=== PATIENT | female | born 1990 | race Caucasian/White ===

== ENCOUNTER 2023-07-08 11:41 | Outpatient (CLI) | payer OTHER | END 2023-07-08 11:42 | disposition home or self-care (01) | LOC: LAB 11:41 | PROVIDERS: ATTEND Nurse Practitioner Obstetrics & Gynecology | DX: Z13.79 Encounter for other screening for genetic and chromosomal anomalies (principal) | CPT/HCPCS: 36415 ==

== ENCOUNTER 2023-09-10 13:30 | Outpatient (CLI) | payer OTHER, MEDICAID ==
--- NOTE | 2023-09-10 20:27 | Ultrasound Report ---
PROCEDURE: OB 14+ Weeks INDICATIONS: SUPERVISION OF OUTSIDE/PRIOR DATING DATA: Last menstrual period (LMP): 04/09/2023. LMP-based estimated date of delivery (LUIS ANGEL): 01/14/2024. First dating scan (date and location): 06/08/2023j; referring physician. Estimated date of delivery (LUIS ANGEL) from first dating scan: 01/21/2024. The below data below was generated using the working LUIS ANGEL of 01/21/2024 TECHNIQUE: Real-time scanning was performed of the fetus, with image documentation and biometric measurements. Endovaginal scanning: Not performed. COMPARISON: None. FINDINGS: General: A single living intrauterine gestation is present. Presentation: Breech Placenta: Placental position is anterior, without previa. Amniotic fluid index: 15.8 cm, with largest pocket measuring 5.1 cm. heart rate: 152 beats per minute. Maternal cervical canal: Closed measuring 3.4 cm long; normal length is 2.5 cm or more. biometrics: Biparietal diameter: 5.09 cm; 21 weeks 3 days; 63.3% Head circumference: 19.02 cm; 21 weeks 2 days; 54.0% Abdominal circumference: 16.95 cm; 22 weeks 0 day; 75.5% Femur length: 3.74 cm; 21 weeks 6 days; 73.0% Estimated gestational age from initial scan: 21 weeks 0 day. Composite gestational age from present scan: 21 weeks 2 days Estimated weight and percentile: 455.7 g; 86.9% Measurement variability for biometric dating: +/- 10 days from 12-20 weeks gestation, +/- 2 weeks fro m 20-30 weeks gestation, +/- 3 weeks for 30 weeks gestation or later. Anatomic survey: Neuro: Ventricles are non-dilated at less than 10 mm. Cisterna magna is normal at 3-11 mm. Cerebel lum is normal in size and morphology. Nuchal skin fold: Normal at less than 6 mm between 14-20 weeks gestational age. Face: Nose and lips, facial profile are normal. Spine: No evidence for spina bifida. Heart: 4-chambered heart is present. The ventricular outflow tracts are not visualized. Diaphragm: Diaphragm is intact. Stomach: Left-sided stomach is present. Kidneys: No hydronephrosis. Normal is less than 5 mm in 2nd trimester, less than 7 mm in 3rd trimester. Cord: 3-vessel cord has orthotopic insertion. Bladder: Normal in size. Extremities: All 4 extremities identified. IMPRESSION: 1. A single living IUP with appropriate interval growth. 2. weight is estimated at 86.9% for gestational age. 3. DONALDO 15.8 cm. 4. cardiac outflow tracts are not visualized. Consider follow-up imaging. Reviewed by: Dalia Goff MD on 09/10/2023 8:26 PM PST Approved by: Dalia Goff MD on 09/10/2023 8:26 PM PST Station ID: [id number]
== END 2023-09-10 13:31 | disposition home or self-care (01) ==
LOC: DI 13:30
PROVIDERS: ATTEND Nurse Practitioner Obstetrics & Gynecology
DX: Z34.02 Encounter for supervision of normal first pregnancy, second trimester (principal); Z36.89 Encounter for other specified antenatal screening

== ENCOUNTER 2023-10-26 14:24 | Emergency (ER) | payer MEDICAID, OTHER ==
[2023-10-26 18:06] VITALS: BP 110/66; O2SAT 98
--- NOTE | 2023-10-26 19:03 | ED Physician Documentation ---
PD HPI ABD PAIN - Stated complaint Stated Complaint: RT SIDE PX - Chief complaint Chief Complaint: Trauma Abd - Additional information Additional information: 32-year-old female G1, P0 presents emergency department after falling down 3 stairs. She is 27 weeks . She says that she missed a step it was 3 short stairs going into her garage and fell onto her right side. She says she did not fall directly onto her stomach, But onto her right side. She said she has had no vaginal bleeding no abdominal cramping or discharge since the fall. She says she also feels safe at home no concerns of abuse she feels safe in her relationship. She is here alone. And was interviewed alone. She is no bruising to her body. She did not hit her head no loss of consciousness no blood thinners. PD PAST MEDICAL HISTORY - Past Medical History Past Medical History: Yes Cardiovascular: None Respiratory: None Neuro: None Endocrine/Autoimmune: None GI: None [employer] MANAGER: None : None HEENT: None Psych: None Musculoskeletal: None Derm: None - Past Surgical History Past Surgical History: No - Present Medications Home Medications: Ambulatory Orders Medication Instructions Recorded Confirmed Acetaminophen [Tylenol] 650 mg PO Q6H PRN 10/26/23 10/26/23 Pnv No.95/Ferrous Fum/Folic AC 1 each PO DAILY 10/26/23 10/26/23 [ Tablet] - Allergies Allergies/Adverse Reactions: Allergies Allergy/AdvReac Type Severity Reaction Status Date / Time No Known Drug Allergies Allergy Verified 10/26/23 14:45 - Social History Does the pt smoke?: No Smoking Status: Never smoker Does the pt drink ETOH?: No Does the pt have substance abuse?: No - Immunizations Immunizations are current?: Yes PD ED PE NORMAL - Vitals Vital signs reviewed: Yes - General General: Alert and oriented X 3, No acute distress, Well developed/nourished - HEENT HEENT: Atraumatic, PERRL - Cardiac Cardiac: RRR, No murmur, Strong equal pulses - Respiratory Respiratory: No respiratory distress, Clear bilaterally - Abdomen Abdomen: Soft, Non tender, Other (, no bruising, abrasions, or erythema to abdomen) - Back Back: No CVA TTP - Derm Derm: Normal color, Warm and dry, No rash - Extremities Extremities: No deformity, No edema Results - Vitals Vitals: Vital Signs - 24 hr 10/26/23 10/26/23 10/26/23 14:46 16:54 17:56 Temperature 36.9 C Heart Rate 70 76 82 Respiratory 18 22 20 Rate Blood Pressure 122/65 109/64 110/66 O2 Saturation 99 100 98 Oxygen O2 Source Room air - Rads (name of study) Limited OB ultrasound Relevant Findings:: Final report received, EMP independent interpretation of test, Other (No acute findings or abnormalities, single living IUP, no placental abruption or other abnormalities or acute findings.) PD Medical Decision Making - ED course ED course: 32-year-old female, 27 weeks presents emergency department after having a ground-level fall down 3 stairs onto her right side. 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 Ultrasound was complete there is no acute findings or abnormalities, heart rate 145 bpm, closed cervix, no placental abruption. Patient continues to deny any abdominal pain or cramping no vaginal bleeding or discharge. No other acute abnormalities or findings at this time symptoms have not changed since has been here she feels safe at home no concern for abuse at this time. Patient was given strict return precautions to the follow-up with [employer]. Departure - Departure Disposition: 01 Home, Self Care Clinical Impression: 27 weeks gestation of Fall down stairs Qualifiers: Encounter type: initial encounter Qualified Code(s): W10.8XXA - Fall (on) (from) other stairs and steps, initial encounter Instructions: ED Prevention Fall Comments: Thank you for trusting us with your care we have completed an ultrasound and you r placenta appears to be healthy and intact as well as your baby. Please follow-up with your [employer] to let her know about this fall please come back to the emergency department started noticed any vaginal bleeding, cramping, fevers chills, noticing that your baby is not moving around as much, or any other concerning symptoms. Forms: PCP List Discharge Date/Time: 10/26/23 19:14
--- NOTE | 2023-10-26 19:24 | Ultrasound Report ---
PROCEDURE: OB Limited INDICATIONS: fell down stairs OUTSIDE/PRIOR DATING DATA: Last menstrual period (LMP): 04/09/2023. LMP-based estimated date of delivery (LUIS ANGEL): 01/14/2024. First dating scan (date and location): 09/10/2023. Estimated date of delivery (LUIS ANGEL) from first dating scan: 01/21/2024. The below data below was generated using the working LUIS ANGEL of 01/21/2024 TECHNIQUE: Real-time scanning was performed of the fetus, with image documentation. COMPARISON: OB ultrasound, 09/10/2023. FINDINGS: A single living intrauterine gestation is present. Presentation: Vertex Placenta: Placental position is anterior, without previa. No findings to suggest placental abruption . Amniotic fluid index: 14.5 cm with the largest pocket 4.7 cm. heart rate: 145 beats per minutes. Maternal cervical canal: 3.8 cm long and closed; normal length is 2.5 cm or more. Estimated gestational age from initial scan: 27 weeks 4 days. IMPRESSION: 1. A single living IUP redemonstrated. 2. No findings to suggest placental abruption. 3. Cervix is closed measuring 3.8 cm long. Reviewed by: Dalia Goff MD on 10/26/2023 7:23 PM PST Approved by: Dalia Goff MD on 10/26/2023 7:23 PM PST Station ID: [id number]
== END 2023-10-26 19:14 | disposition home or self-care (01) ==
LOC: ED 14:24
DX: O9A.212 Injury, poisoning and certain other consequences of external causes complicating pregnancy, second trimester (principal); Z3A.27 27 weeks gestation of pregnancy; W10.9XXA Fall (on) (from) unspecified stairs and steps, initial encounter; Y92.008 Other place in unspecified non-institutional (private) residence as the place of occurrence of the external cause
CPT/HCPCS: 99283; 99284

== ENCOUNTER 2023-11-09 07:45 | Outpatient (CLI) | payer MEDICAID ==
[2023-11-09 12:16] LABS: HCT - HEMATOCRIT 33.6 % (37.0-47.0); MEAN CORPUSCULAR HEMOGLOBIN 31.7 pg (27.0-31.0); MEAN CORPUSCULAR HGB CONC 32.7 g/dL (32.0-36.0); MEAN CORPUSCULAR VOLUME 96.8 fL (81.0-99.0); MEAN PLATELET VOLUME 9.8 fL (7.9-10.8); RED BLOOD COUNT 3.47 10^6/uL (4.20-5.40); RED CELL DISTRIBUTION WIDTH 12.1 % (12.0-15.0); WHITE BLOOD COUNT 7.5 x10^3/uL (4.8-10.8)
== END 2023-11-09 07:46 | disposition home or self-care (01) ==
LOC: LAB.N 07:45
PROVIDERS: ATTEND Nurse Practitioner Obstetrics & Gynecology
DX: Z36.9 Encounter for antenatal screening, unspecified (principal)
CPT/HCPCS: 36415; 82950; 85027

== ENCOUNTER 2023-12-10 08:04 | Outpatient (CLI) | payer MEDICAID, OTHER ==
--- NOTE | 2023-12-10 08:52 | Ultrasound Report ---
PROCEDURE: OB Follow up INDICATIONS: UTERINE SIZE DATE DISCREPENCY OUTSIDE/PRIOR DATING DATA: Last menstrual period (LMP): 04/09/2023. LMP-based estimated date of delivery (LUIS ANGEL): 01/14/2024. First dating scan (date and location): 09/10/2023. Estimated date of delivery (LUIS ANGEL) from first dating scan: 01/21/2024. The below data below was generated using the ultrasound LUIS ANGEL of 01/21/2024 TECHNIQUE: Real-time scanning was performed of the fetus, with image documentation and biometric measurements. Endovaginal scanning: Not performed. COMPARISON: 10/26/2023 FINDINGS: General: A single living intrauterine gestation is present. Presentation: Vertex Placenta: Placental position is anterior, without previa. Amniotic fluid index: 15.5 cm, within normal limits for gestational age. heart rate: 136 beats per minute. Maternal cervical canal: 3.7 cm long; normal length is 2.5 cm or more. biometrics: Biparietal diameter: 8.81 cm, 35 weeks 4 days, 87.8 percentile Head circumference: 31.3 cm, 35 weeks 1 day, 40.7 percentile Abdominal circumference: 30.5 cm, 34 weeks 3 days, 67.8 percentile Femur length: 6.75 cm, 34 weeks 5 days, 59.6 percentile Estimated gestational age from initial scan: 34 weeks 0 days Composite gestational age from present scan: 35 weeks 0 days Estimated weight and percentile: 2496 g, 65.3 percentile Measurement variability in biometric dating: +/- 10 days from 12-20 weeks gestation, +/- 2 weeks from 20-30 weeks gestation, +/- 3 weeks at 30 weeks gestation or more. Other: Not applicable. IMPRESSION: Living third trimester intrauterine with no sonographic evidence of complicati ons. Current ultrasound age is 7 days greater than clinical age. Reviewed by: Raphael Pedro MD on 12/10/2023 8:51 AM PDT Approved by: Raphael Pedro MD on 12/10/2023 8:51 AM PDT Station ID: [id number]
== END 2023-12-10 08:05 | disposition home or self-care (01) ==
LOC: DI 08:04
PROVIDERS: ATTEND Nurse Practitioner Obstetrics & Gynecology
DX: O26.843 Uterine size-date discrepancy, third trimester (principal); Z36.89 Encounter for other specified antenatal screening; Z3A.35 35 weeks gestation of pregnancy

== ENCOUNTER 2024-01-15 06:55 | Inpatient (IN) | payer OTHER, MEDICAID ==
[2024-01-15] MEDS ORDERED: TERBUTALINE 1 MG/ML VIAL SUBQ PRN (07:55)
[2024-01-15] MEDS ORDERED: OXYTOCIN/SODIUM CHLORIDE 500 ML IV PRN (07:55)
[2024-01-15] MEDS ORDERED: SODIUM CHLORIDE FLUSH 0.9% 10 ML SYRINGE IVP PRN (07:55)
[2024-01-15] MEDS ORDERED: LACTATED RINGERS 1,000 ML IV PRN (07:55)
[2024-01-15] MEDS ORDERED: hydrALAZINE INJ 20 MG/ML VIAL IVP PRN ×2 (07:55)
[2024-01-15] MEDS ORDERED: miSOPROStoL 200 MCG TABLET PR PRN (07:55)
[2024-01-15] MEDS ORDERED: METHYLERGONOVINE 0.2 MG/ML VIAL IM PRN (07:55)
[2024-01-15] MEDS ORDERED: CARBOPROST TROMETHAMINE 250 MCG/ML VIAL IM PRN (07:55)
[2024-01-15] MEDS ORDERED: TRANEXAMIC ACID IN NACL 1,000 MG/100 ML BAG IV PRN (07:55)
[2024-01-15] MEDS ORDERED: LABETALOL 20 MG/4 ML SYRINGE IVP PRN ×3 (07:55)
[2024-01-15] MEDS ORDERED: NIFEdipine 10 MG CAPSULE PO PRN (07:55)
[2024-01-15] MEDS ORDERED: miSOPROStoL 200 MCG TABLET BC PRN (07:55)
--- NOTE | 2024-01-15 07:57 | HISTORY & PHYSICAL EXAMINATION ---
Admit History - Visit Reason Visit Reason: Contractions - : 1 Parity: 0 Premature: 0 Ectopic: 0 : 0 Care: positive: [facility] Risk/History: positive: None Complications This : positive: None Smoking Status: Never smoker - Mother's Labs Mother's Blood Type: positive: A Mother's RH: positive: Positive GBS: positive: Group B Step Negative Rubella Status: positive: Immune - NST Procedure NST reactive. FHR baseline 145, moderate variability, + accels, no decels Contractions palpate strong every 2-4 minutes with soft resting tone Meds/Allgy - Home Medications Home Medications: Ambulatory Orders Medication Instructions Recorded Confirmed Acetaminophen [Tylenol] 650 mg PO Q6H PRN 10/26/23 10/26/23 Pnv No.95/Ferrous Fum/Folic AC 1 each PO DAILY 10/26/23 10/26/23 [ Tablet] - Allergies Allergies/Adverse Reactions: Allergies Allergy/AdvReac Type Severity Reaction Status Date / Time No Known Drug Allergies Allergy Verified 10/26/23 14:45 Review of Systems - Constitutional Constitutional: denies: Fatigue, Fever, Chills, Malaise - Eyes Eyes: denies: Blurred vision, Spots in vision, Dipolpia - Cardiovascular Cariovascular: denies: Palpitations, Chest pain, Edema - Respiratory Respiratory: denies: Cough, Wheezing, SOB at rest - Gastrointestinal Gastrointestinal: denies: Constipation, Diarrhea, Nausea, Vomiting - Musculoskeletal Musculoskeletal: denies: Back pain - Integumentary Integumentary: denies: Rash, Pruritis - Neurological Neurological: denies: Headache - Psychiatric Psychiatric: denies: Depression, Anxiety - All Other Systems All Other Systems: reports: Reviewed and negative Physical - Abdominal Exam Contraction Frequency (min/apart): 2-4 Contraction Intensity: positive: Strong Uterine Resting Tone: positive: Soft - Monitoring Heart Rate Baseline: 140s Strip Review: positive: Category I - Presentation Presentation: positive: Vertex - Vaginal Exam Membranes: positive: Membranes intact Dilation (in cm): 6 Effacement (%): 75 Station: positive: -1 Cervical Position: positive: Anterior - Speculum Exam Speculum Exam Performed: positive: No Plan for Labor - Plan For Labor I expect patient to be DC'd or transferred within 96 hours.: Yes Plan for Labor: HPI: Sandy is a 33yo @ 39.1wks gestation by 7.5wk U/S who presents to [facility] in active labor. Upon arrival cervix is 6/100/-1 and vertex with intact membranes. She is found to contract every 2-4 minutes with soft resting tone. FHR baseline 140s, moderate variability, + accels, no decels. She reports she has been lindsey intermittently since yesterday and throughout the night they continued to get more intense and closer together. [facility] for the duration of her which has remained uncomplicated with the exception of testing positive for chlamydia in the first trimester. She and her partner were both treated appropriately and her test of cure was negative. She will be admitted to [facility] for expectant management. She is supported by her partner Alex. 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 Stopped drinking alcohol due to . Denies current use of tobacco, marijuana or other recreational drugs. Reports that she is safe in current relationship. Family Hx: Denies family history of congenital anomalies, Cystic Fibrosis or chromosomal abnormalities. Allergies: NKDA Medications: PNV course: Initial U/S @ 7.5wks dates (7 days different than LMP dating) A positive, antibody negative Rubella immune, varicella immune HIV nonreactive, RPR non-reactive Hep B neg, Hep C neg GC negative, Chlamydia POSITIVE Test of cure Chlamydia NEGATIVE Genetic screening - negative FAS WNL. Anterior placenta, no previa. Size c/w dating (EFW 86%tile). 3VC. Incomplete visualization of cardiac structures. (pt declines follow up). Glucola 113 Tdap - declined Covid - declined Influenza - declined 34 wk Growth ultrasound secondary to size<dates (EFW 65%tile) GBS negative Physical exam: Normocephalic, atraumatic Heart RRR w/o M/G/R Lungs CTAB Abdomen gravid, soft, nontender FHR baseline 140s, moderate variability, + accels, no decels Contractions palpate firm every 2-4 minutes with soft resting tone SVE 6/100/-1 and vertex. Intact membranes Bilateral LE's no edema Mood is good Assessment: 33yo @ 39.1wks gestation by 7.5wks U/S Active labor FHR Category I GBS negative Plan: Admit to [facility] for expectant management. Intermittent heart rate auscultating. Jacuzzi PRN. Nitrous oxide PRN. Epidural per maternal request. Anticipate .
[2024-01-15] MEDS ORDERED: SODIUM CHLORIDE FLUSH 0.9% 10 ML SYRINGE IVP SCH (08:00)
[2024-01-15] MEDS: lidocaine 1% 20 ML MDV ID PRN (12:30)
[2024-01-15] MEDS: OXYTOCIN 10 UNIT/ML VIAL IM PRN (12:50)
[2024-01-15] MEDS ORDERED: HYDROCORTISONE 1% CREAM 28 GM TUBE PR PRN (13:05)
--- NOTE | 2024-01-15 13:05 | DELIVERY NOTE ---
Delivery Note - Labor Labor: positive: Spontaneous - Delivery Method Delivery Method: positive: Spontaneous vaginal delivery - Presentation Presentation: positive: Vertex, ANA - left occiput anterior - Nuchal Cord Nuchal Cord: positive: None - Amniotic Fluid Description Amniotic Fluid Description: positive: Moderate meconium - Episiotomy Type Episiotomy Type: positive: None - Laceration Laceration: positive: 1st degree, Perineal - Suture Suture Type: positive: Vicryl Suture Size: positive: 3-0 - Delivery Outcome Delivery Outcome: positive: Livebirth - : positive: Placed in direct skin contact with mother, Suctioned, Bulb syringe, Stimulated, Warmed, [place] used, Warmer used sex: positive: Female - Cord Cord: positive: 3 vessels - Placenta Placenta: positive: Intact, Spontaneous - Estimated Blood Loss Estimated Blood Loss (in cc): 300 - Post Delivery Events Post Delivery Events: positive: No post delivery events - Delivery Comments (Free Text/Narrative) Delivery Comments (Free Text/Narrative): This 33yo @ 39.1wks gestation by 7.4wk U/S who presents to [facility] in active labor. Cervix was 6/75/-1 and vertex with intact membraens. FHR pattern demonstrated Category I pattern throughout labor. Normal labor course. SROM occurred at 1028 and was noted to be a moderate amount of moderate meconium stained amniotic fluid. She progressed to c/c with active pushing effort at 1125. : Normal SVB of a viable female infant on 01/15/2024 @ 1215. No nuchal cord. The was placed on maternal abdomen, stimulated, dried, and placed skin to skin. Apgars were 8/8 at 1 and 5 minutes respectively. Pt declined active management of the third stage. The umbilical cord was allowed to stop pulsating at which time it was doubly clamped and cut by CNM. 3VC. Cord blood was obtained. Fundal massage and gentle cord traction applied for active management of the third stage. Placenta delivered spontaneously and intact at 1227. EBL 350mL. Fourth stage: Uterine fundus firm and there is no excessive bleeding. The perineum, vagina, and cervix were inspected and found to have a 1st degree perineal laceration which was repaired using a 3-[address]-1 needle, and a right labial laceration which was repaired with 1 interrupted stitch using a 4-0 vicryl on an SH needle. Both repairs were performed in standard fashion and under sterile conditions. Vaginal examination following repair was done. Tissues well approximated. Family bonding well. Both mother and baby were left in stable condition.
[2024-01-15] MEDS: IBUPROFEN 800 MG TABLET PO SCH (14:21)
[2024-01-15] MEDS: ACETAMINOPHEN 500 MG TABLET PO SCH (14:22)
[2024-01-15 14:42] LABS: BASOPHILS % (AUTO) 0.4 %; EOSINOPHILS % (AUTO) 0.3 %; HCT - HEMATOCRIT 38.1 % (37.0-47.0); HGB - HEMOGLOBIN 12.2 g/dL (12.0-16.0); LYMPHOCYTES # (AUTO) 1.4 10^3/uL (1.5-3.5); MEAN CORPUSCULAR HEMOGLOBIN 29.6 pg (27.0-31.0); MEAN CORPUSCULAR VOLUME 92.5 fL (81.0-99.0); MEAN PLATELET VOLUME 9.9 fL (7.9-10.8); MONOCYTES # (AUTO) 0.6 10^3/uL (0.0-1.0); MONOCYTES % (AUTO) 6.7 %; NEUTROPHILS # (AUTO) 7.3 10^3/uL (1.5-6.6); NEUTROPHILS % (AUTO) 76.5 %; PLT - PLATELET COUNT 294 10^3/uL (130-450); RED BLOOD COUNT 4.12 10^6/uL (4.20-5.40); RED CELL DISTRIBUTION WIDTH 12.8 % (12.0-15.0); WHITE BLOOD COUNT 9.6 x10^3/uL (4.8-10.8)
[2024-01-15] MEDS: WITCH HAZEL/GLYCERIN 1 PAD TOP PRN (16:28)
[2024-01-15] MEDS: DOCUSATE SODIUM 100 MG CAPSULE PO SCH (20:50)
[2024-01-15 21:41] VITALS: O2SAT 100
--- NOTE | 2024-01-16 07:28 | PHARMACY PROGRESS NOTE ---
- Best Possible Medication History Admit Date and Time: 01/15/24 0754 Processed by: Pharmacy As the person ultimately responsible for medication therapy, providers are able to order a medication from an existing home medication list in [facility] via the "Reconcile Routine" prior to Confirmation of that medication by computer support technician. Such practice is discouraged except when the physician, in their clinical judgment, deems that a medical need exists for a medication without regard to previous use.
--- NOTE | 2024-01-17 00:21 | PROVIDER PROGRESS NOTE ---
Subjective - Subjective Subjective: S: Bonding well with baby. without difficulty. Bleeding decreased and is light. Pain well controlled with oral medications. She is urinating and tolerating a regular diet. Partner supportive at the bedside. She was able to get some sleep last night and states she is feeling very well this morning. O: Heart RRR w/o M/G/R, lungs CTAB, abdomen soft and nontender, fundus firm and U, perineum intact, repair without edema, light lochia rubra, bilateral LE's no edema. Mood is good. A: 33yo -->P1 PPD#1 s/p TSVB viable female infant Normal recovery P: Continue routine care and medications. Evaluate for discharge home tomorrow. Objective - Vital Signs/Intake & Output Vital Signs: Vital Signs x48h Temp Pulse Resp BP 01/16/24 16:30 36.8 C 89 17 106/61 - Lab Results Fish Bones: 01/15/24 07:45
--- NOTE | 2024-01-17 09:50 | Discharge Plan ---
Discharge Plan Problem Reviewed?: Yes Disposition: Home, Self Care Condition: Good Diet: Regular Activity Restrictions: No Restrictions Shower Restrictions: No Driving Restrictions: No Weight Bearing: Full Weight Instruction Topics: Vaginal After, Breastfeed Holds, Self Care, Nutrition No Smoking: If you smoke, Please STOP! Call for help. Follow-up with: Nicolasa Berrios CNM, CLAUDY [Provider Admit Priv/Credential] - 1 Week
--- NOTE | 2024-01-17 10:04 | DISCHARGE SUMMARY ---
Discharge Summary Condition at Discharge: Good Discharge Disposition: 01 Home, Self Care - HOSPITAL COURSE Hospital Course: Date of Admission: 01/15/2024 Date of Discharge: 01/17/2024 Diagnosis on Admission: 1. 33yo @ 39.1wks gestation by 7.5wks U/S 2. Active labor 3. FHR Category I 4. GBS negative Diagnosis on Discharge: 1. 33yo PPD#2 s/p TSVB viable female 2. 3. Normal recovery Brief History: [facility] who presented on 01/15/2024 in active labor. Cervix was 6/75/-1 and vertex with intact membranes. She progressed to spontaneously deliver a viable female on 01/15/2024 @ 1215. Apgars were 8/8 at 1 and 5 minutes respectively. EBL 350mL. 1st degree perineal and 1st degree right labial lacerations were repaired in standard fashion and under sterile conditions. She has been doing well in her course. She is ambulating and tolerating a regular diet. She is urinating without difficulty and her lochia is normal. Her pain is well controlled with oral medications. She is bonding well with her baby and she is without difficulty. She will be discharged home today on day #1 with instructions to continue taking her vitamin while and to continue taking ibuprofen and tylenol over the counter as needed for pain management. She intends to follow up with myself in 1 week for routine visit or sooner if needed. She has been given precautions to call if she has any worsening fevers, chills, abdominal pain, increased vaginal bleeding, or foul smelling vaginal lochia. Physical exam: Normocephalic, atraumatic. Heart RRR w/o M/G/R, lungs CTAB, [place] soft and nontender. Fundus firm at U-1, bilateral LE's no edema. - ALLERGIES Allergies/Adverse Reactions: Allergies Allergy/AdvReac Type Severity Reaction Status Date / Time No Known Drug Allergies Allergy Verified 10/26/23 14:45 - MEDICATIONS Home Medications: Ambulatory Orders Medication Instructions Recorded Confirmed Acetaminophen [Tylenol] 650 mg PO Q6H PRN 10/26/23 01/16/24 Pnv No.95/Ferrous Fum/Folic AC 1 each PO DAILY 10/26/23 01/16/24 [ Tablet] - LABS Result Diagrams: 01/15/24 07:45
--- NOTE | 2024-01-17 15:17 | Labor Flowsheet ---
Labor Flowsheet Datetime Report Generated by CPN: 01/17/2024 15:17 Datetime: 01/16/2024 16:19 VITAL SIGNS NBP Sys/Lyn/Mean (mmHg): 106 : 61 : 71 Pulse: 89 Datetime: 01/15/2024 13:44 SpO2 (%): 97 Datetime: 01/15/2024 13:27 Membranes Ruptured Date/Time: 01/15/2024 11:28 Amniotic Fluid Color: Light Meconium Amniotic Fluid Amount: Moderate Amniotic Fluid Odor: Normal Datetime: 01/15/2024 12:29 Stage of : Recovery Datetime: 01/15/2024 12:15 UTERINE ACTIVITY Monitor Mode: External Frequency (min): 2-3 Quality: Strong Duration (sec): 50-60 Pattern: Normal: <= 5 Contractions in 10 Minutes Resting Tone (Palpate): Relaxed ASSESSMENT A Monitor Mode: Telemetry FHR Baseline Rate : 145 Variability: Minimal - Undetectable to <=5 bpm Decelerations: None Category: Category II Datetime: 01/15/2024 12:06 Pushing Progress: with Pushing; Pushing Effectively with Contractions Stage 2 Comments: Pt reposition to right side to continue pushing. Datetime: 01/15/2024 12:00 Monitor Interventions for FHR: Ultrasound Adjusted Comments: Maternal Hr tracing with cxtns Datetime: 01/15/2024 11:49 LaborFlag: Labor Datetime: 01/15/2024 11:30 Patient Care Comments: A.Asha at bedside. RN Maria Alejandra continuosly at bedside. Peds notified by and (Annotations: Data stored by [facility] on [facility] user) Datetime: 01/15/2024 11:28 Membrane Status: Ruptured Membranes Rupture Method: Spontaneous Membrane Comments: moderate meconium Datetime: 01/15/2024 11:25 VAGINAL EXAM Dilatation (cm): 10.0 Effacement (%): 100 STAGE 2 Pushing: Involuntary Pushing Pushing Position: Pushing with Contractions Datetime: 01/15/2024 11:16 COMMUNICATION Communication Comments: A.Asha, CNM notified of SVE Datetime: 01/15/2024 11:15 Actions for Decelerations: Hands and Knees Datetime: 01/15/2024 11:12 Station: 1 Exam by: A.Maria Alejandra, RN Vaginal Bleeding: Normal Show Datetime: 01/15/2024 10:52 Temperature (C): 36.8 Datetime: 01/15/2024 10:13 Comfort Measures: Hot Shower/Tub/Spa Datetime: 01/15/2024 10:06 Vaginal Exam Comments: Patient request for SVE due to rectal pressure Datetime: 01/15/2024 09:01 Accelerations: 15X15 Datetime: 01/15/2024 08:34 Monitor Interventions for UA: [place] Adjusted Contraction Comments: baselined Datetime: 01/15/2024 08:33 I/O Interventions: Clear Liquids Given Datetime: 01/15/2024 08:16 Patient Position/Activity: Hands-Knees Datetime: 01/15/2024 07:50 PATIENT CARE IV/Blood Work: IV Started; Labs Drawn with IV Start Datetime: 01/15/2024 07:17 Cervix, Consistency: Soft Cervix, Position: Midposition
[2024-01-17 15:24] VITALS: BP 115/70
== END 2024-01-17 13:00 | disposition home or self-care (01) | DRG 807 ==
LOC: WFO 06:55 → FBP 06:57 → WFO 07:54 → FBP 07:54
PROVIDERS: ADMIT Nurse Practitioner Obstetrics & Gynecology; ATTEND Nurse Practitioner Obstetrics & Gynecology
PROC: 10E0XZZ Delivery of Products of Conception, External Approach (ICD-10-PCS; principal; 2024-01-15)
PROC: 0HQ9XZZ Repair Perineum Skin, External Approach (ICD-10-PCS; 2024-01-15)
DX: O70.0 First degree perineal laceration during delivery (principal); Z37.0 Single live birth; O77.0 Labor and delivery complicated by meconium in amniotic fluid; Z3A.39 39 weeks gestation of pregnancy; Z86.19 Personal history of other infectious and parasitic diseases
CPT/HCPCS: 36415; 59409; 85025; 86850; 86900; 86901; 99215; A9270